=== PATIENT | female | born 1935 | race Caucasian/White ===

== ENCOUNTER 2017-04-16 11:38 | Inpatient (IN) | payer OTHER ==
[~2017-04-16 11:38] MED LIST: IOPAMIDOL (ISOVUE-370) 150 ML BTL IV ONE; LIDOCAINE 1% 300 MG/30 ML SDV ONE
[2017-04-16] MEDS ORDERED: EPINEPHrine 1 MG/10 ML SYR IVP ONE ×6 (11:39→14:00)
[2017-04-16] MEDS ORDERED: SODIUM BICARBONATE 50 MEQ/50 ML SYR IVP ONE ×2 (11:40→12:46)
[2017-04-16] MEDS ORDERED: D50W 25 GM/50 ML SYR IVP ONE (11:45)
--- NOTE | 2017-04-16 12:00 | CPEKG ---
Heart Rate: 100 RR Interval: 600 P-R Interval: Invalid QRSD Interval: 188 QT Interval: 436 QTC Interval: 563 P [place]: 0 QRS [place]: 98 T Wave [place]: -36 EKG Severity - ABNORMAL ECG - EKG Impression: ACCELERATED JUNCTIONAL RHYTHM EKG Impression: FIRST DEGREE AV BLOCK EKG Impression: RBBB AND LPFB Electronically Signed By: Todd Ramirez 16-Apr-2017 14:21:09
--- NOTE | 2017-04-16 12:02 | EDPHY ---
H & P Time Seen by Provider: 04/16/17 11:38 HPI/ROS: CHIEF COMPLAINT: Cardiac arrest HISTORY OF PRESENT ILLNESS: History from EMS; Witnessed arrest at home, possibly in the car, with bystander CPR for 5 min. She fell forward and hit her head. On EMS arrival 1st rhythm was asystole. Patient received 6 mg of epinephrine EN route with transient ROSC, and on arrival CPR is in progress with pre-hospital airway in place. Fell forward with facial trauma. The review of systems and further history unobtainable as the patient is nonverbal on arrival. did not arrive until later. PAST MEDICAL HISTORY: Unavailable on arrival as the patient is nonverbal Social history: , arrives after her. General Appearance: Unresponsive Eyes: Pupils 3 mm ENT, Mouth: Pre-hospital airway in the mouth Respiratory: No spontaneous respirations being bagged Cardiovascular: No heart sounds Gastrointestinal: Abdomen distended Neurological: Unresponsive Skin: Bruising around the right forehead and the right eye Musculoskeletal: In a C-collar, no extremity deformities noted. Remainder of physical exam is deferred because of the critical nature of the patient Emergency Department course/MDM: CPR in progress on arrival. Patient's pre-hospital airway was removed by myself and replaced with an endotracheal tube, see procedure note for details. Gastric tube placed, pressure control instead of volume control ventilation initiated for high peak airway pressures. Dr. Hinds in the ER on arrival as she is a cardiac alert by EMS. Patient had i-STAT performed which revealed glucose 166, creatinine 2.1, potassium 5.6. Additional medications given including IV epinephrine and bicarbonate. She also got IV dextrose prior to her glucose resulting. Bedside echocardiogram interpreted by Dr. Hinds shows normal LV function but very dilated right ventricle. At this point decision made to proceed to CT to evaluate for pulmonary embolism as well as for head trauma. Discussed with by Guzman and myself, and including potential need for dialysis with IV contrast given her kidney function, and consented. Patient had return of spontaneous circulation in the resuscitation room with palpable pulses and detectable blood pressure. Patient had recurrent PEA cardiac arrest in CT scanner but responded to CPR and epinephrine. Removed from backboard. Dr. Chu to admit the patient; she is present in the CT scanner Per Dr. Farrar at 12:20 p.m. there does not appear to be a large or saddle pulmonary embolism, no intracranial hemorrhage. CT scan reviewed by him on the monitor. No cspine fracture. Dr. Ayala aware because of the patient's trauma from a fall, will consult as the patient is still in a cervical spine collar. 1230: Primary care records obtained by nurse outreach case manager reviewed at this time. Negative nuclear stress test 10/17/2016. Medical problems include hypertension hypoxemia and emphysema. Also diabetes and multiple sclerosis. Discussed with the in detail including the the life-threatening nature of her illness. Directly from CT to cardiac laboratory scientist per Dr. Hinds. kept informed by myself, Dr. Chu, Dr. Hinds. Medical Claims Representative present. Constitutional: Initial Vital Signs Heart Rate 42 L 04/16/17 11:45 Blood Pressure 130/90 H 04/16/17 11:45 O2 Sat (%) 88 L 04/16/17 11:45 O2 Delivery Mode Ventilator Allergies/Adverse Reactions: Unable to Assess Allergy (Unverified 04/16/17 12:46) Medical Decision Making - Diagnostics EKG Interpretation: 12-lead EKG interpreted by me; official reading is in trace master. My interpretation is junctional rhythm with right bundle branch block and wide complex. Imaging Results: Chest Xray shows ETT and no pneumothorax, 1 view, after intubation. Procedures: Orotracheal intubation. Indication for the procedure was cardiac and respiratory arrest . The patient was preoxygenated with 100% oxygen by EMS airway. Consent is implied as the patient is nonverbal. The pre-hospital airway was removed. The patient was orally endotracheally intubated under direct visualization with a 7.5 ETT seen to pass the TVC. Tracheal intubation was confirmed with misting on the tube; breath sounds were auscultated equally bilaterally; appropriate color change with [place] CO2 detector, capnography waveform is appropriate, oxygen saturation after procedure is 90%. Chest X-ray shows ETT in good position, at the joseph. The procedure was performed by myself. Critical Care Time: Critical care time spent by me, Dr. Ramirez, exclusively with the care of this patient was 35 minutes, exclusive of PA or BRAIN PICKER time and exclusive of separate procedures including CPR. The organ system at risk was cardiovascular and I ordered ALS medications including epinephrine bicarbonate and glucose, multiple diagnostics, interaction with Cardiology and hospitalist, ventilator management ; to stabilize the patient and try to prevent worsening of the patient's condition. - Data Points Laboratory Results: Laboratory Results 04/16/17 11:45 04/16/17 11:45 Medications Given: Epinephrine HCl 8 mg/ Dextrose 250 mls @ 0 mls/hr IV CONT PHI; Per Protocol PRN Reason: Protocol Stop: 10/13/17 13:59 Last Admin: 04/17/17 06:31 Dose: 250 mls Sodium Chloride (Ns) 1,000 mls @ 100 mls/hr IV CONT PHI Stop: 10/13/17 14:36 Last Admin: 04/16/17 14:00 Dose: 1,000 mls Fentanyl/Sodium Chloride (Fentanyl 10 Mcg/Ml (Premix)) 100 mls @ 0 mls/hr IV CONT PHI; Per Protocol PRN Reason: Protocol Stop: 04/26/17 14:36 Last Admin: 04/17/17 07:10 Dose: 100 mls Propofol (Diprivan 10 Mg/Ml (Premix)) 100 mls @ 0 mls/hr IV CONT PHI; Per Protocol PRN Reason: Protocol Stop: 10/13/17 14:36 Last Admin: 04/17/17 06:34 Dose: 100 mls Norepinephrine/Sodium Chloride (Norepinephrine 8 Mcg/Ml (Premix)) 500 mls @ 0 mls/hr IV CONT PRN; Protocol; Per Protocol PRN Reason: MAP less than 90 mmHg Stop: 10/13/17 14:36 Last Admin: 04/17/17 04:59 Dose: 500 mls Dextrose (D5w) 1,000 mls @ 25 mls/hr IV CONT PHI Stop: 10/13/17 16:02 Last Admin: 04/16/17 16:30 Dose: 1,000 mls Insulin Human Regular 100 unit (/ Sodium Chloride) 101 mls @ 0 mls/hr IV AD PHI ; As Directed PRN Reason: Protocol Stop: 10/13/17 16:02 Last Admin: 04/17/17 04:46 Dose: 101 mls Discontinued Medications Dextrose (Dextrose 50% Syringe) 25 gm IVP ONCE ONE Stop: 04/16/17 11:46 Last Admin: 04/16/17 11:45 Dose: 25 gm Epinephrine HCl (Epinephrine) 1 mg IVP ONCE ONE Stop: 04/16/17 11:40 Last Admin: 04/16/17 11:39 Dose: 1 mg Epinephrine HCl (Epinephrine) 1 mg IVP ONCE ONE Stop: 04/16/17 11:43 Last Admin: 04/16/17 11:42 Dose: 1 mg Epinephrine HCl (Epinephrine) 1 mg IVP ONCE ONE Stop: 04/16/17 11:46 Last Admin: 04/16/17 11:45 Dose: 1 mg Epinephrine HCl (Epinephrine) 1 mg IVP ONCE ONE Stop: 04/16/17 12:05 Last Admin: 04/16/17 12:04 Dose: 1 mg Fentanyl (Sublimaze) 50 mcg IVP ONCE ONE Stop: 04/16/17 14:38 Last Admin: 04/16/17 18:04 Dose: Not Given Epinephrine HCl 1 mg/ Dextrose 251 mls @ 0 mls/hr IV CONT PHI; Per Protocol PRN Reason: Protocol Stop: 10/13/17 12:59 Last Admin: 04/16/17 12:05 Dose: 251 mls Sodium Chloride (Ns) 1,000 mls @ 0 mls/hr IV ONCE ONE PRN Reason: Wide Open Stop: 04/16/17 13:27 Last Admin: 04/16/17 11:40 Dose: 1,000 mls Sodium Chloride (Ns) 1,000 mls @ 0 mls/hr IV ONCE ONE PRN Reason: Wide Open Stop: 04/16/17 13:27 Last Admin: 04/16/17 12:05 Dose: 1,000 mls Sodium Chloride (Ns) 1,000 mls @ 0 mls/hr IV ONCE ONE PRN Reason: Wide Open Stop: 04/16/17 14:38 Last Admin: 04/16/17 18:08 Dose: Not Given Sodium Chloride (Ns) 500 mls @ 0 mls/hr IV ONCE ONE PRN Reason: Wide Open Stop: 04/16/17 18:47 Last Admin: 04/16/17 21:23 Dose: Not Given Magnesium Sulfate/Dextrose (Magnesium Sulf 1 Gm (Premix)) 100 mls @ 100 mls/hr IV ONCE ONE Stop: 04/17/17 04:24 Last Admin: 04/17/17 03:45 Dose: 100 mls Insulin Human Lispro (Humalog Lispro) 0 unit SC Q6H PHI PRN Reason: Protocol Stop: 10/13/17 16:29 Last Admin: 04/16/17 18:09 Dose: Not Given Lidocaine HCl (Lidocaine Hcl 1%) 0 mg SC ONCE ONE Stop: 04/16/17 16:31 Last Admin: 04/16/17 18:04 Dose: Not Given Miscellaneous Information (Message To [facility]) 1 ea MISC ONCE ONE Stop: 04/16/17 14:38 Last Admin: 04/16/17 16:30 Dose: 1 ea Sodium Bicarbonate (Sodium Bicarbonate) 50 meq IVP ONCE ONE Stop: 04/16/17 11:41 Last Admin: 04/16/17 11:40 Dose: 50 meq Sodium Bicarbonate (Sodium Bicarbonate) 50 meq IVP ONCE ONE Stop: 04/16/17 12:47 Last Admin: 04/16/17 11:50 Dose: 50 meq Sodium Bicarbonate (Sodium Bicarbonate) 50 meq IV ONCE ONE Stop: 04/16/17 20:46 Last Admin: 04/16/17 20:45 Dose: 50 meq Departure - Departure Disposition: To OP Cath/Surgery Clinical Impression: Cardiac arrest Condition: Critical
[2017-04-16 12:06] LABS: PLATELET COUNT 79 10^3/uL (150-400)
[2017-04-16 12:28] LABS: INR 2.86 (0.83-1.16); PROTIME(PATIENT) 29.9 SEC (12.0-15.0)
[2017-04-16] MEDS ORDERED: EPINEPHrine 1 MG in NS 250 ML IV SCH ×2 (12:30→13:00)
[2017-04-16] MEDS ORDERED: PHENYLEPHRINE HCL 100 MCG/ML SYR ONE (12:32)
[2017-04-16] MEDS ORDERED: HEPARIN 10,000 UNIT/10 ML MDV ONE (12:32)
[2017-04-16] MEDS ORDERED: SODIUM BICARBONATE 50 MEQ/50 ML SYR ONE ×4 (12:33→14:00)
[2017-04-16] MEDS ORDERED: NS 1,000 ML IV ONE ×3 (13:26→14:37)
[2017-04-16] MEDS ORDERED: IOPAMIDOL (ISOVUE-370) 150 ML BTL IV ONE (13:27)
[2017-04-16] MEDS ORDERED: LIDOCAINE 1% 300 MG/30 ML SDV ONE ×2 (13:27→15:59)
[2017-04-16] MEDS ORDERED: fentanYL/NACL/100 ML BAG IV ONE (14:00)
[2017-04-16] MEDS ORDERED: CALCIUM CHLORIDE 1 GM/10 ML INJ ONE ×2 (14:00)
[2017-04-16] MEDS: fentaNYL/NACL 100 ML IV SCH (14:00)
[2017-04-16] MEDS ORDERED: PROPOFOL/EMULSION 1,000 MG/100 ML BOTTLE IV ONE (14:00)
[2017-04-16] MEDS ORDERED: EPINEPHrine 4 MG in D5W 1,000 ML IV SCH (14:00)
[2017-04-16] MEDS ORDERED: NOREPINEPHRINE/NS 4 MG/500 ML BAG IV ONE (14:06)
[2017-04-16] MEDS ORDERED: MIDAZOLAM HCL 50 MG in D5W 50 ML IV PRN (14:37)
[2017-04-16] MEDS ORDERED: NARCOTIC DRIP BAG-TOTAL ALL TYPES IV PRN (14:37)
[2017-04-16] MEDS ORDERED: VECURONIUM BROMIDE 50 MG in D5W 50 ML IV SCH (14:37)
[2017-04-16] MEDS ORDERED: NS 1,000 ML IV SCH (14:37)
[2017-04-16] MEDS ORDERED: PROTOCOL POTASSIUM 1 DOSE MISC PRN ×2 (14:37→16:32)
[2017-04-16] MEDS ORDERED: fentaNYL 100 MCG/2 ML INJ IVP ONE (14:37)
[2017-04-16] MEDS ORDERED: PROTOCOL MAGNESIUM 1 DOSE IV PRN ×2 (14:37→16:32)
[2017-04-16] MEDS ORDERED: USE *INSINTENS FOR HYPOGLYCEMIA ORDERS MISC ONE (14:37)
[2017-04-16] MEDS ORDERED: NS 250 ML IV PRN (14:37)
[2017-04-16] MEDS ORDERED: niCARdipine/NACL 200 ML IV PRN (14:37)
[2017-04-16] MEDS ORDERED: MIDAZOLAM 2 MG/2 ML VIAL IVP PRN (14:37)
--- NOTE | 2017-04-16 14:38 | CPEKG ---
Heart Rate: 71 RR Interval: 845 QRSD Interval: 138 QT Interval: 472 QTC Interval: 513 QRS [place]: 96 T Wave [place]: -28 EKG Severity - ABNORMAL ECG - EKG Impression: ATRIAL FIBRILLATION EKG Impression: RBBB AND LPFB Electronically Signed By: Pito Amin 16-Apr-2017 14:43:28
[2017-04-16 15:33] LABS: PLATELET COUNT 86 10^3/uL (150-400)
--- NOTE | 2017-04-16 15:33 | GCON ---
[f rep st] CONSULTATION CRITICAL CARE NOTE DATE OF CONSULTATION: 04/16/2017 SUMMARY OF PRESENTATION AND COURSE: The patient is an 81-year-old female with risk factors including age, hypertension, and diabetes mellitus, who was admitted to the hospital as a cardiac alert on 06/2017. The patient was in her usual state of health until 1-2 days prior to admission, when she wa s noted to be more short of breath, per report. On the day of admission, when patient woke up, she w as somewhat confused and disoriented, per her . The patient and her went to go to a h air appointment, and after the patient climbed into the car, she was noted to be unresponsive by her . Her helped her out of the car. In the process, she hit her head and ended up on th ground CPR was initiated, but when she remained unresponsive, her called EMS, who presented on the scene for further evaluation. The initial rhythm was asystole. Patient was treated with CPR and epinephrine and was brought to [facility] emergency department for further manag ement. On arrival in the emergency department, patient remained in asystole with ongoing CPR. She w as given multiple rounds of epinephrine, as well as a dose of glucose and bicarbonate, with the devel opment of pulseless electrical activity, followed by pulsed electrical activity. Her initial workup included a potassium of 5.6, a glucose of 166, a pH of 7.16, and an echocardiogram. The echocardiogr am demonstrated preserved left ventricular systolic function with marked right ventricular enlargemen t and hypokinesis. Is was felt that the patient was likely suffering from a pulmonary embolism. She was taken to the CT scanner for further evaluation. On arrival in the CT scanner, patient once agai n developed pulseless electrical activity and was treated with CPR as well as epinephrine. The CT sc an demonstrated no evidence of intracranial hemorrhage. There was no evidence of pulmonary embolism. It was decided to take the patient to the cardiac catheterization laboratory to look for potential obstructive coronary artery disease that would contribute to her event. Coronary angiography demonst rated mild nonobstructive coronary artery disease. Patient was transferred back to the ICU for furth er management. It is felt that the patient's pulseless electrical activity was likely secondary to h ypoxemia; however, acidosis is difficult to exclude, as she was quite acidotic on arrival. However, this is felt to be secondary to ongoing resuscitative efforts. /[id number]/MODL
[2017-04-16] MEDS ORDERED: D5W 1,000 ML IV SCH (16:03)
[2017-04-16] MEDS ORDERED: D50W 25 GM/50 ML SYR IVP PRN ×2 (16:03→16:28)
[2017-04-16 16:14] LABS: INR 3.57 (0.83-1.16); PROTIME(PATIENT) 35.4 SEC (12.0-15.0)
[2017-04-16] MEDS ORDERED: MIDAZOLAM HCL 50 MG in NS 50 ML IV SCH (16:15)
[2017-04-16] MEDS ORDERED: ACETAMINOPHEN 650 MG SUPP PR PRN (16:20)
[2017-04-16] MEDS ORDERED: ONDANSETRON 4 MG/2 ML VIAL IVP PRN (16:20)
[2017-04-16] MEDS: INSULIN REGULAR HUMAN 100 UNIT in NS 100 ML IV SCH (16:30)
[2017-04-16] MEDS ORDERED: INSULIN LISPRO 100 UNIT/ML SC SCH (16:30)
[2017-04-16] MEDS ORDERED: LIDOCAINE 1% 300 MG/30 ML SDV SC ONE (16:30)
--- NOTE | 2017-04-16 17:34 | CPIP ---
[f rep st] INVASIVE CARDIAC PROCEDURE DATE OF PROCEDURE: 04/16/2017 PROCEDURES: 1. Coronary angiography. 2. Placement of HACA catheter. INDICATION: Pulseless electrical activity with return of perfusing rhythm. ACCESS: The patient was prepped and draped in sterile fashion. 1% lidocaine was used to anesthetize the right inguinal region. A 6-Pakistani introducer sheath was placed selectively in the right common fe moral artery via modified Seldinger technique. A 5-Pakistani introducer sheath was placed selectively in the right common femoral vein via modified Seldinger technique. CORONARY ANGIOGRAPHY: A 6-Pakistani JL4 was advanced to the left main coronary artery and images obtain ed. The left main coronary artery bifurcated into an LAD and circumflex coronary arteries. The left m ain coronary artery appeared normal. The left anterior descending coronary artery had mild diffuse di sease throughout. In the mid vessel, there was a segmental 30% stenosis present and in the distal ves andrey there was a segmental 30% stenosis present as well. The circumflex coronary artery is a moderate- sized vessel. The circumflex coronary artery gave rise to 3 OM branches. The circumflex coronary yassine ry appeared normal. A 6-Pakistani JR4 was advanced to the right coronary artery and images obtained. The right coronary artery was dominant. The right coronary artery had a proximal long segmental 30% sten osis present. LEFT VENTRICULOGRAPHY: Left ventriculography was not performed in an effort to spare contrast. This information will be gleaned from an echocardiogram. HACA CATHETER PLACEMENT: The 5-Pakistani introducer sheath placed in the right common femoral vein was later exchanged for a HACA catheter which was advanced and sewn in. COMPLICATIONS: None. CONCLUSIONS: 1. Mild coronary artery disease without flow limitation. 2. Status post successful placement of a HACA catheter. /[id number]/MODL
[2017-04-16] MEDS: NOREPINEPHRINE 4MG/NS 500 ML IV PRN (18:01)
--- NOTE | 2017-04-16 18:34 | GHP ---
[f rep st] HISTORY AND PHYSICAL DATE OF ADMISSION: 04/16/2017 CHIEF COMPLAINT: Cardiac arrest. HISTORY OF PRESENT ILLNESS: The patient is an 81-year-old female with a history of hypertension, emphysema, chronic hypoxemia, type 2 diabetes and pulmonary hypertension who presents to the emergency department in cardiac arrest. The patient lives at [place] in [facility]. She reportedly woke up this morning with some confusion. Her was assisting her in the car today to drive to a hair appointment. After she got into the car, she became suddenly unresponsive. As he assisted her out of the car she hit her head. It sounds as though she was already unconscious. EMS was called. CPR was initiated in the field. Her initial rhythm was reportedly asystole. She was given epinephrine. Upon arrival to the emergency department she had ongoing CPR with persistent asystole. She went on to receive multiple rounds of epinephrine in addition to sodium bicarb. Her rhythm then transitioned to PEA. After a final dose of epinephrine, she had return of spontaneous circulation and an epinephrine drip was initiated. A stat head CT was negative for intracranial bleed. CT pulmonary angiogram was negative for a pulmonary embolism, but did show bilateral pleural effusions, much larger on the left. In addition, she had multiple rib fractures on the left and a small right pneumothorax with displaced ribs on the right. A bedside echo in the emergency department revealed a severely dilated right ventricle. In addition, she was noted to have a small pericardial effusion. She was taken for an angiogram, which showed clear coronary arteries. She was then admitted to the intensive care unit for further management where HACA protocol was initiated. PAST MEDICAL HISTORY: 1. Chronic emphysema. 2. Chronic hypoxemic respiratory failure on home oxygen 2-3 L/minute. 3. Hypertension. 4. Pulmonary hypertension. She had a right ventricular systolic pressure of 74 on September 2016 echo with severe pulmonary hypertension. 5. Type 2 diabetes mellitus. 6. Hypothyroidism. 7. History of possible transient ischemic attack. 8. Possible history of mild multiple sclerosis per old records. 9. History of nephrolithiasis. 10. Peripheral neuropathy. 11. Degenerative disk disease. PAST SURGICAL HISTORY: 1. Foot surgery May 03, 2000. 2. Hysterectomy 1997. 3. Retropubic urethropexy 1993. 4. Urethral needle suspension 1992. 5. Cholecystectomy, appendectomy in 1959. MEDICATIONS: Please see [facility] for completed outpatient medication list. ALLERGIES: Morphine, codeine, and oxaprozin. FAMILY HISTORY: Reviewed and noncontributory. SOCIAL HISTORY: The patient is . Her is at the bedside. They live at [facility] at [facility]. She has a 40+ pack-year tobacco history and, per her , there is occasional alcohol use. REVIEW OF SYSTEMS: Unobtainable as the patient is intubated and sedated; however, discussion with her reveals the patient has chronic shortness of breath; however, she had not previously complained of chest pain prior to becoming unresponsive. She was confused and disoriented this morning. OBJECTIVE: VITAL SIGNS: Current vital signs: Temperature is 30.7, blood pressure 94/61, heart rate 67, respiratory rate 16. She is 91% on the ventilator, 80% FiO2, in atrial fibrillation. GENERAL: The patient is ventilated and sedated and unresponsive. HEENT: There is a large right frontal scalp hematoma. Pupils are 3-4 mm and reactive. NECK: Supple and difficult to assess for JVD. CHEST: Her chest wall is markedly edematous with ecchymosis across her sternum and tense tissue. HEART: Sounds are distant. She has an irregularly irregular rhythm without murmur or pericardial friction rub detected. Again, exam is difficult with her marked subcutaneous air. LUNGS : Diminished at the bases with crackles. ABDOMEN: Protuberant, tense with marked distention and likely subcutaneous air or fluid. EXTREMITIES: Reveal 1 + peripheral edema and are cool to touch though the patient is currently hypothermic on HACA protocol. NEUROLOGIC: The patient is ventilated and sedated. Does not move her extremities. LABORATORY DATA: [place] [address], hemoglobin 12.9, hematocrit 42, with a platelet count of 79. D-dimer of 14.2. PT 29.9, INR 2.86. Blood gas showed a pH of 7.16, pCO2 of 55, PO2 49. Chem panel initially showed a sodium of 144, potassium 6.1, repeat is 4.7, chloride 98, bicarb 28, BUN 34, creatinine 2.0. Her blood sugars up to 250. Urine drug screen is pending. Troponin is 0.046. EKG on arrival to the emergency department shows an irregular, wide-complex tachycardia with a right bundle branch block and a heart rate of 100. Repeat EKG is more consistent with atrial fibrillation and right bundle block persists. IMAGING DATA: 1. A cervical spine CT on admission was negative for a fracture. Severe degenerative disc disease from C4 through C7 is noted. 2. Head CT was negative for intracranial hemorrhage. A large right frontal scalp hematoma is noted. No skull or facial fractures are seen. 3. CT pulmonary angiogram negative for pulmonary embolism. A small right anterobasal pneumothorax and displaced 2nd through 7th right ribs, a left 2nd through 8 rib fractures and moderate to large left and small to moderate right pleural effusions as well as mild pericardial effusion. The ET tube is noted superior to the joseph. There is a patchy nodular opacity in the left upper lobe, possibly representing atelectasis versus an underlying mass and a small amount of free fluid around her spleen. 4. Chest x-ray, upon arrival to the ICU, showed development of extensive subcutaneous emphysema bilaterally with ET tube and NG tube in good position. Mild right-sided pneumothorax is seen and consolidation, effusion suspected at the lung bases, left greater than right. 5. Echocardiogram on arrival was performed and the report is pending though per discussion with Cardiology, this showed a severely enlarged right ventricle with a normal left systolic ejection fraction. ASSESSMENT AND PLAN: The patient is an 81-year-old female with history of diabetes, hypertension, emphysema with chronic hypoxemic respiratory failure and pulmonary hypertension who presented to the emergency department in cardiac arrest. 1. Cardiac arrest. Asystole then PEA. Suspect hypoxemic event. Clean coronaries on angiogram. Review of her record reveals chronic pulmonary hypertension with suspected right heart failure and she presents with a large pleural effusion on the left. In addition, there is evidence of central lobular emphysema. S/P multiple rounds of epinephrine as well as CPR for an extended period of time. Currently on HACA protocol. Complications from her CPR include extensive subcutaneous emphysema, pericardial effusion, perisplenic fluid and multiple rib fractures as well as chest wall ecchymosis/hematoma. Her vitals are currently stable on high dose epinephrine and Levophed. She is intubated, ventilated and sedated with propofol. Will continue pressor support and wean as able. Cardiology and pulmonology teams are following. 2. Chronic hypoxemic respiratory failure secondary to COPD, severe pulmonary hypertension with severely dilated right ventricle and right heart failure along and bilateral pleural effusions. Currently ventilated, requiring pressor therapy. Should she survive this, she will likely need diuresis at some point, although that is currently not an option. CTPA negative for PE. 3. Pericardial effusion. This is likely a complication of CPR as it was not present on her initial echo. We will need to monitor her closely for clinical changes suggestive of tamponade including tachycardia, pulsus paradoxus, electrical alternans and worsening hypotension. It is difficult to re-evaluate via transthoracic echo given her subcutaneous emphysema. Cardiology is aware. Should she decompensate during the night, would consider transesophageal echo plus or minus pericardial window as indicated. 4. Chronic hypoxemia. She uses 2-3 L of oxygen at baseline in the setting of chronic obstructive pulmonary disease and pulmonary hypertension. 5. Bilateral pleural effusions. I suspect this may be chronic in the setting of presumed right heart failure. This may have contributed to her hypoxemia and arrest. She is currently intubated, ventilated and will continue supportive care. If she survives and stabilizes we could consider a thoracentesis at some point for diagnostic and therapeutic purposes. 6. Atrial fibrillation. The patient has previously been anticoagulated with Eliquis. This will be held given her elevated INR and concern for mediastinal bleeding. She is currently rate controlled. 7. Pneumothorax. Likely complication of CPR / multiple rib fractures. I discussed the case with Dr. Ayala and he will place a chest tube. Pain control with Fentanyl. 8. Acute kidney injury. This is likely prerenal given her cardiac arrest. Her creatinine is slowly trending down. 9. Type 2 diabetes mellitus. Her blood sugars are currently in the 200s. Insulin drip per HACA protocol. 10. Deep vein thrombosis prophylaxis. Pharmacologic therapy is contraindicated with her elevated INR and recent Eliquis use. She will receive no blood thinners, sequential compression devices are placed for now. CODE STATUS: I had a lengthy discussion with the patient's regarding her goals of care and code status. He wishes for her to remain full code at this time. We will continue these discussions on a daily basis. DISPOSITION: Patient admitted to inpatient status. She will require greater than 48 hours hospitalization for ongoing management of her respiratory failure and cardiac arrest. Currently on HACA protocol in the intensive care unit. TIME SPENT: A total of 75 minutes was spent providing critical care and discussing the case with subspecialty team. /[id number]/MODL MTDD
[2017-04-16] MEDS ORDERED: NS 500 ML IV ONE (18:46)
--- NOTE | 2017-04-16 19:49 | POSTOPPROG ---
Post Op Note Date of Operation: 04/16/17 Surgeon: Pito Ayala Anesthesia: Local (Specify) Pre-op Diagnosis: RT PNEUMO AND SUBCUT EMPHYSEMA Post-op Diagnosis: SAME Indication: WORSENING RESP STATUS Procedure: RT TUBE THORACOSTOMY Findings: TENSION PNEUMO AND LOTS OF AIR IN SUBCUT Inf/Abcess present in the surg proc area at time of surgery?: No Depth: Organ Space EBL: Minimal Complications: 0 Drains: Constavac
--- NOTE | 2017-04-16 19:52 | SOAPPROG ---
SOAP Progress Note Assessment/Plan: Assessment: 81 FEMALE WITH SUDDEN , RESUSCITATED IN ER AND NOW ON HAKA PROTOCOL MASSIVE SUBCUT EMPHYSEMA/ RT PNEUMO/ VERY DISTENDED ABDOMEN NOT RESPONSIVE WILL NEED CHEST TUBE WHILE ON VENT AND PEEP Plan:RT CHEST TUBE 04/16/17 19:49 Objective: Vital Signs Temp Pulse Resp BP Pulse Ox 32.3 C L 67 20 129/67 H 97 04/16/17 19:00 04/16/17 19:00 04/16/17 19:00 04/16/17 19:00 04/16/17 19:00 Laboratory Results 04/16/17 14:00 04/15/17 04/16/17 04/17/17 05:59 05:59 05:59 Intake Total 1038.4 Output Total 1610 Balance -571.6 PT 35.4 SEC (12.0-15.0) H 04/16/17 15:50 INR 3.57 (0.83-1.16) H 04/16/17 15:50 ICD10 Worksheet Patient Problems: Problems Problem Status Onset Cardiac arrest Acute
[2017-04-16] MEDS ORDERED: NA BICARBONATE 50 MEQ/50 ML VIAL IV ONE (20:45)
[2017-04-16] MEDS: PROPOFOL/EMULSION 100 ML IV SCH (22:20)
[2017-04-17] MEDS: NOREPINEPHRINE 4MG/NS 500 ML IV PRN ×6 (00:21→22:38)
[2017-04-17 02:36] LABS: PLATELET COUNT 138 10^3/uL (150-400)
[2017-04-17 02:48] LABS: INR 2.72 (0.83-1.16); PROTIME(PATIENT) 28.8 SEC (12.0-15.0)
[2017-04-17] MEDS ORDERED: MAGNESIUM SULF 1 GM/DEXTROSE 100 ML IV ONE (03:25)
[2017-04-17] MEDS: INSULIN REGULAR HUMAN 100 UNIT in NS 100 ML IV SCH (04:46)
--- NOTE | 2017-04-17 06:27 | PDMN ---
Medical Necessity Medical necessity: est los>2mn for cardiac arrest w/asystole, then PEA, r/t suspected hypoxemic event; complications of CPR include extensive subq emphysema , pericardial effusion, perisplenic fluid , multiple rib fx's/pneumonthorax requiring chest tube, and chest wall ecchymosis/hematoma; admit to ICU on HACA protocol, intubated, sedated, and ventilated; comorbid DM, HTN, emphysema, chronic resp failure on chronic O2, and pulmonary htn; per order and H&P 04/16/17
[2017-04-17] MEDS: PROPOFOL/EMULSION 100 ML IV SCH (06:34)
[2017-04-17] MEDS: fentaNYL/NACL 100 ML IV SCH (07:10)
--- NOTE | 2017-04-17 07:41 | CPIP ---
[f rep st] INVASIVE CARDIAC PROCEDURE DATE OF PROCEDURE: 04/16/2017 PROCEDURE PERFORMED: Left femoral vein central line placement for Zoll Thermogard as part of the HACA protocol. DIAGNOSIS: Cardiac arrest, status post [id number] cardiac arrest with asystole with resuscitation. INDICATION: The Thermogard on the right side is losing fluid and is not working properly; therefore, I was asked to see the patient in consultation. PROCEDURE IN DETAIL: After informed consent was obtained from the patient's who is at bedside, and the patient was thoroughly assessed, the region of the left femoral vein was cleaned, prepped, and draped in sterile fashion. Approximately 3 cc of 1% lidocaine was utilized for local anesthesia. The patient has a BIS of 16 and is cooled. 18-gauge Cook needle was used to gain access to the left femoral vein with a single anterior puncture of the vessel. The patient then underwent placement of a J-wire. The 18-gauge needle was removed. A dilator was advanced over the wire. The dilator was removed, and the Thermogard catheter was advanced over the wire in sterile condition, sutured in place with 0 silk. FINAL IMPRESSION: Successful left femoral vein central line placement as a Zoll Thermaguard catheter for use as part of the hypothermia after cardiac arrest protocol. Copy requested to: Primary Care Physician /[id number]/MODL MTDD
[2017-04-17] MEDS ORDERED: RN MUST ADD CA+ & PHOS PROTOCOL TO WORKLIST AT 36 C MISC SCH (09:00)
[2017-04-17] MEDS: MAINTAIN PARALYTIC,ANALGESIA,SEDATION UNTIL TEMP IS 36C MISC SCH (09:00)
[2017-04-17] MEDS: RN MUST REMOVE K+ & MG+ PROTOCOL FROM WORKLIST AT 36 C MISC SCH (09:00)
--- NOTE | 2017-04-17 09:19 | ECHO ---
[email or web address] [address] [address] Main: [phone] Fax: Transthoracic Echocardiogram Name: MARISEL BRAND MR#: [id number] Study Date: 04/17/2017 Study Time: 07:56 AM Date of : 1935 Age: 81 year(s) Height: ( ) Weight: ( ) BSA: Gender: Female Examination: Limited Echo Indication: Eval for pericardial fluid Image Quality: Contrast: Requested by: Sonali Chu BP: 120 mmHg/70 mmHg Heart Rate: Rhythm: Indication: Eval for pericardial fluid Procedure Staff Operations Manager: Cierra Sheridan Physician: Pito Amin Requesting Provider: Conclusions: The left ventricle cavity is small. Global hypercontractility of the left ventricle. Right Ventricle: Moderate to severely dilated right ventricle. Moderate tricuspid regurgitation is present. RVSP is 50-60mmHG.. Trivial anterior pericardial effusion. Left side pleural effusion. Technically Limited study. Data is unreliable given the clinical scenario and limitations ; other modalities of imaging should be considered if indicated . Measurements: Chambers Valvular Assessment AV/MV Valvular Assessment TV/PV Normal Normal Normal Name Value Range Name Value Range Name Value Range AV Vmax: 1.26 m/s (1 m/s-1.7 TR Vmax: 3.16 mm/s ( - ) m/s) TR PGmax: 40 mmHg ( - ) AV maxP mmHg ( - ) syst. PAP: 50 mmHg ( - ) Continued Measurements: Valvular Assessment TV/PV Name Value CVP (est.): 10 mmHg Findings: Left Ventricle: Patient: MARISEL BRAND Study Date: 04/17/2017 Page 1 of 2 07:56 AM The left ventricle cavity is small. Global hypercontractility of the left ventricle. Right Ventricle: Moderate to severely dilated right ventricle. Tricuspid Valve: Moderate tricuspid regurgitation is present. The pulmonary artery pressure is moderately increased. RVSP is 50-60mmHG.. Pericardium: Trivial anterior pericardial effusion. Left side pleural effusion. (No Signature Object) Patient: MARISEL BRAND Study Date: 04/17/2017 Page 2 of 2 07:56 AM [id number]
--- NOTE | 2017-04-17 10:16 | NEUROPROG ---
Assessment: [id number] Neurology Consult Note CC: Concern for anoxic brain injury HPI: Pt with cardiac arrest on 04/17/17 so was brought to [facility] ER and admitted on HACA to ICU. It was reported EMS found her in asystole at the scene. In the ER she received ACLS and asystole rhythm progressed to PEA and then ROSC. Head CT unremarkable. I initially saw the patient on 04/17/17 for evaluation of possible anoxic brain injury from cardiac arrest. She was still undergoing HACA protocol but had no signs of brainstem reflexes (pupils nonreactive, not breathing on vent, no movement to pain). PMHx: chronic emphysema, chronic hypoxemia, HTN, pulm HTN, DM2, hypothyroidism, TIA, possible mild MS, renal stones, peripheral neuropathy, degen disk disease PSHx: foot surgery, hysterectomy, urinary, choli, appi SHx: FHx: NC ROS: Pt cannot provide information O: Pt lying in ICU bed, intubated, w/o any response to pain/nail bed pressure to all 4 extremities, no pupillary or vestibulo-ocular reflex, not breathing on vent, not speaking or aware Labs: 04/17/17- Na 140 Rads: 04/16/17- Head CT: no acute intracranial hemorrhage or swelling, large R frontal scalp hematoma, no underlying acute skull or facial fracture (I personally visualized the images on 04/17/17) Assessment: 1. Cardiac arrest on 04/16/17 with ROSC: Cause under evaluation by cardiology, hospitalist 2. Anoxic brain injury from cardiac arrest on 04/16/17: It will require 72 hours after initial event to provide definitive neurological prognostication however when she is re-warmed tomorrow we can assess for any brainstem reflexes and if absent she will likely be considered brain . I feel her prognosis is likely very poor. I spoke with her with my concern on prognosis. Plan: - Prognosis is uncertain but I am extremely worried she had a severe anoxic brain injury and will not recover - Agree with HACA Objective: Vital Signs Temp Pulse Resp BP Pulse Ox 33.1 C L 107 H 20 121/66 H 93 04/17/17 06:00 04/17/17 09:00 04/17/17 09:00 04/17/17 09:00 04/17/17 09:00 Laboratory Results 04/17/17 01:50 04/17/17 08:25 04/16/17 04/17/17 04/18/17 05:59 05:59 05:59 Intake Total 3803.7 Output Total 1685 Balance 2118.7 PT 28.8 SEC (12.0-15.0) H 04/17/17 01:50 INR 2.72 (0.83-1.16) H 04/17/17 01:50 Allergies/Adverse Reactions: Unable to Assess Allergy (Unverified 04/16/17 12:46)
--- NOTE | 2017-04-17 11:12 | GCON ---
[f rep st] CONSULTATION PULMONARY/CRITICAL CARE CONSULTATION. DATE OF CONSULTATION: 04/17/2017 REFERRING PHYSICIAN: Duncan Hinds MD REASON FOR REFERRAL: Evaluation and management of respiratory failure after cardiac arrest, pneumoth orax, and HACA protocol. HISTORY: The patient is an 81-year-old woman with a history of hypertension, emphysema, on oxygen, p ulmonary hypertension, and type 2 diabetes who presented to the emergency department in [facility] . She lives at [facility] at [address]. She had been feeling a bit more short of breath alisha n usual over the last couple days and was a bit confused when she woke up this morning. Her helped her get to the car today for a hair appointment. She took her oxygen off between the house an d getting into the car. She was able to get in the car okay, but when her walked around to et in to drive, he noticed that she was unresponsive. He began [id number] and then called EMS an d moved her to the ground where he thinks that she hit her head. She was unconscious throughout this time. CPR was initiated in the field with an initial rhythm of asystole. She was given epinephrine . She had ongoing CPR into the emergency department and then was given epinephrine and sodium bicarb with transition of her rhythm to PEA and then spontaneous circulation. A CT scan of the head was negative. A CT pulmonary angiogram was negative for PE but showed bilatera l moderate pleural effusions as well as a small right pneumothorax and multiple rib fractures. Echoc ardiogram demonstrated a severely dilated right ventricle. She was taken for an angiogram, which lianet wed no flow-limiting disease. HACA protocol was initiated, and she was transferred to the intensive care unit. On arrival she was hypotensive and had extensive subcutaneous emphysema. Because the chest x-ray lianet wed a persistent right pneumothorax, possibly enlarging, a chest tube was placed by Dr. Ayala on the right. After this, the patient's blood pressure improved, and her airway pressures dropped from the 50s down to the low 30s. She has remained sedated and unresponsive. PAST MEDICAL HISTORY: 1. Emphysema. The patient is on oxygen at 2 L/minute, which her reports that she uses most all the time. 2. Pulmonary hypertension. The patient had an RVSP of 74 mmHg on an echocardiogram from September 2016. 3. Hypertension. 4. Type 2 diabetes. 5. Possible obstructive sleep apnea. The patient apparently had 2 recent sleep studies, but the pat ient has not been on CPAP, and the patient's is unaware of the details of the results. 6. Possible TIA. 7. History of nephrolithiasis. 8. Atrial fibrillation. MEDICATIONS: We do not have a home medication list currently. The patient has apparently been on bl ood thinners for atrial fibrillation. ALLERGIES: Unknown. SOCIAL HISTORY: The patient has an extensive history of smoking in the past. She drinks alcohol occ asionally. She is , and her has been with her since admission. REVIEW OF SYSTEMS: Unobtainable. PHYSICAL EXAMINATION: GENERAL: The patient is intubated and sedated. VITAL SIGNS: Blood pressure is 120/64 with a heart rate of 67, on epinephrine and norepinephrine drips. This has improved from a systolic blood pressure in the 70s prior to chest tube placement. Her temperature is 31.6. HEENT: She has some ecchymoses on her face. Endotracheal tube is appropriately placed. NECK: A C-collar is present. No adenopathy is felt. CHEST: The patient has decreased breath sounds bilaterally. Sh e has extensive subcutaneous emphysema. A right chest tube is present. CARDIAC: Irregularly irregu lar without murmur. ABDOMEN: Markedly distended, also with subcutaneous emphysema, as well as obesi ty. Bowel sounds are hypoactive. EXTREMITIES: No clubbing, cyanosis. She has 1+ lower extremity e maria elena. SKIN: The patient has chronic stasis changes in both lower extremities. NEURO: The patient is sedated and unresponsive. Pupils are pinpoint and nonreactive. LABORATORY: A chemistry group shows a creatinine of 1.8 with a BUN of 32, potassium is 4.7, glucose is 218, AST is 50. Her troponin is 0.046 and albumin is 2.0. INR is 3.6. White blood count is 18.0 , up from 13.1. Hemoglobin is 9.9, down from 12.9. Her platelet count is 86. She has 17% bands. A n arterial blood gas shows a pH of 7.28 with a pO2 of 49, a CO2 of 37, and a bicarbonate of 18 on IMV with a rate of 20 and a tidal volume of 400 with 80% oxygen and a PEEP of 5. This was prior to ches t tube placement. IMAGING: A chest x-ray shows extensive subcutaneous emphysema and a small right pneumothorax. A CT scan of the chest shows no pulmonary embolism. There are bilateral moderate-size pleural effusions a nd multiple rib fractures. Images were reviewed by me. An ECG shows atrial fibrillation with a rate of 71. ASSESSMENT: 1. Cardiac arrest. The patient initially had asystole, then pulseless electrical activity. There w as prolonged cardiopulmonary resuscitation with multiple rib fractures. She has no pulmonary embolis m or evidence of coronary artery disease as a cause of her arrest. I suspect this was a hypoxemic ar rest due to the patient's chronic pulmonary hypertension, chronic obstructive pulmonary disease, and hypoxemia with perhaps an acute exacerbation or decompensation. 2. Right pneumothorax with extensive subcutaneous emphysema. This has symptomatically improved with the placement of a right chest tube. 3. Pericardial effusion. The patient has a small pericardial effusion seen on echocardiogram. This may have been due to cardiopulmonary resuscitation as it was not present on her initial evaluation. 4. Bilateral pleural effusions. These are likely chronic. 5. Atrial fibrillation. The patient has chronic atrial fibrillation. 6. Possible obstructive sleep apnea. The patient had sleep studies, but I do not have the results o f these yet, and the patient has not been treated with CPAP. She has, however, been using oxygen at night. 7. Acute kidney injury. The patient has had no urine output and likely has acute kidney injury, whi ch could be on top of chronic renal insufficiency. 8. Type 2 diabetes. The patient's blood sugars are in the 200s. RECOMMENDATIONS: Recheck arterial blood gas. I will attempt to get results of her prior sleep studi es. Continue HACA protocol and pressors to maintain blood pressure. Insulin will be started to cove r her blood sugars. I will repeat a chest x-ray to make sure that her pneumothorax has resolved. He r hemoglobin will be followed to evaluate for further blood loss. 80 minutes of critical care time with multiple reassessments due to hypotension and hypoxemia requiri ng ventilator adjustments and placement of a chest tube, with subsequent reassessments and further ad justments. /[id number]/MODL
--- NOTE | 2017-04-17 11:17 | PDINTPN ---
[employer] Progress Note Assessment/Plan: Assessment: S/P OOH arrest: Asystole, with prolonged CPR. Presumably initial cause was acute on chronic hypoxemia in setting of underlying pulmonary HTN, COPD. Currently HD stable on HACA protocol, Epi, NE. HACA: At goal temperature. Respiratory failure: Improved gas exchange and airway pressures on vent since CT placement yesterday afternoon. On vent, able to wean down FIO2. PTX: S/P right CT, with no residual PTX. Likely due to CPR/Rib Fx. Has extensive SQ air. ROSIO: Cr remains elevated, up slightly. Anuric AF: Rate OK. Anemia: H/H up today. Elevated INR: Down a bit today. No signs of active bleeding Plan: Start Pepcid. No vent changes at this time. Wean down pressors as tolerated. 04/17/17 11:26 Subjective: Intubated, sedated, unresponsive Objective: Vital Signs Temp Pulse Resp BP Pulse Ox 33.1 C L 111 H 20 121/73 H 94 04/17/17 06:00 04/17/17 10:00 04/17/17 10:00 04/17/17 10:00 04/17/17 10:00 Laboratory Results 04/17/17 01:50 04/17/17 08:25 04/16/17 04/17/17 04/18/17 05:59 05:59 05:59 Intake Total 3803.7 Output Total 1685 Balance 2118.7 PT 28.8 SEC (12.0-15.0) H 04/17/17 01:50 INR 2.72 (0.83-1.16) H 04/17/17 01:50 CXR: Unchanged. No PTX. Images reviewed by me. Laboratory Tests 04/17/17 04/17/17 01:50 08:25 INR 2.72 H pCO2 39 H pO2 76 H Total CO2 23 ABG pH 7.37 ABG HCO3 22 Physical Exam - Physical Exam General Appearance: unresponsive, No alert EENT: other (ecchymoses on face) Neck: normal inspection, other (c-collar) Respiratory: chest non-tender, lungs clear Cardiac/Chest: normal peripheral pulses, regular rate, rhythm, No edema Abdomen: distended, No normal bowel sounds (hypoactive), No soft Skin: normal color, warm/dry, other (chronic changes BLE) Extremities: normal inspection Neuro/Psych: alert, normal mood/affect, oriented x 3 ICD10 Worksheet Patient Problems: Problems Problem Status Onset Cardiac arrest Acute
[2017-04-17] MEDS: FAMOTIDINE 20 MG/NACL 50 ML IV SCH (11:35)
--- NOTE | 2017-04-17 11:42 | HOSPPROG ---
Hospitalist Progress Note Assessment/Plan: Cardiac arrest - likely respiratory event. Completing HACA protocol today. Clear cors on angiogram. -wean pressors as able -neurology evaluation appreciated -assess for brainstem activity once re-warmed Acute / chronic hypoxemic respiratory failure - Ventilated / sedated. H/O COPD as well as B/L pleural effusions noted, likely chronic with right heart failure and severe pulmonary hypertension. On 2-3 L at baseline. Also suspect ARASH / OHS contributing. -follow up outpt sleep study results Pneumothorax in setting of multiple rib fractures after prolonged CPR - chest tube management per surgery Pericardial effusion - likely secondary to CPR, was not present on initial echo. Stable. No e/o tamponade. -stat echo for clinical signs of tamponade (hypotension, tachycardia, pulsus paradoxus) Type 2 DM - insulin drip while on HACA, then transition to SC insulin A fib - currently rate controlled, has been on eliquis, which is held during HACA ROSIO - Cr up to 2.2, likely pre-renal in setting of cardiac arrest vs ATN. Will send urine studies. Poor uop. Full code Dispo - cont ICU, prognosis guarded Subjective: pt ventilated, sedated, not following commands Objective: Vital Signs Temp Pulse Resp BP Pulse Ox 33.1 C L 103 H 20 123/67 H 94 04/17/17 06:00 04/17/17 11:00 04/17/17 11:00 04/17/17 11:00 04/17/17 11:00 Laboratory Results 04/17/17 01:50 04/17/17 08:25 04/16/17 04/17/17 04/18/17 05:59 05:59 05:59 Intake Total 3803.7 Output Total 1685 Balance 2118.7 PT 28.8 SEC (12.0-15.0) H 04/17/17 01:50 INR 2.72 (0.83-1.16) H 04/17/17 01:50 - Physical Exam Constitutional: chronically ill appearing Cardiovascular: irregularly irregular, other (chest wall edema / subcutaneous emphysema improved, but marked mediastinal ecchymosis) Respiratory: no respiratory distress, reduced air movement Musculoskeletal: other Psychiatric: other (sedated) ICD10 Worksheet Patient Problems: Problems Problem Status Onset Cardiac arrest Acute
--- NOTE | 2017-04-17 11:57 | SOAPPROG ---
SOAP Progress Note Assessment/Plan: Assessment: 81 FEMALE WITH SUDDEN , RESUSCITATED IN ER AND NOW ON HAKA PROTOCOL MASSIVE SUBCUT EMPHYSEMA/ RT PNEUMO/ VERY DISTENDED ABDOMEN NOT RESPONSIVE WILL NEED CHEST TUBE WHILE ON VENT AND PEEP Plan:RT CHEST TUBE 04/16/17 19:49 04/17/17 11:55 MINIMAL CHEST TUBE DRAINAGE/PATIENT IS MINIMAL AFFECT IS OFF TODAY AND POORLY RESPONSIVE/IT CT SCAN WAS NEGATIVE WILL NEED TISSUE FOR DIAGNOSIS/NO EASILY PALPABLE NODES FOR BIOPSY/QUESTIONABLE BRONCHOSCOPY VERSUS IR BIOPSIES VERSUS LAPAROSCOPIC SURGICAL BIOPSY Objective: Vital Signs Temp Pulse Resp BP Pulse Ox 33.1 C L 103 H 20 123/67 H 94 04/17/17 06:00 04/17/17 11:00 04/17/17 11:00 04/17/17 11:00 04/17/17 11:00 Laboratory Results 04/17/17 01:50 04/17/17 08:25 04/16/17 04/17/17 04/18/17 05:59 05:59 05:59 Intake Total 3803.7 Output Total 1685 Balance 2118.7 PT 28.8 SEC (12.0-15.0) H 04/17/17 01:50 INR 2.72 (0.83-1.16) H 04/17/17 01:50 ICD10 Worksheet Patient Problems: Problems Problem Status Onset Cardiac arrest Acute
--- NOTE | 2017-04-17 12:02 | SOAPPROG ---
SOAP Progress Note Assessment/Plan: Assessment: 81 FEMALE WITH SUDDEN , RESUSCITATED IN ER AND NOW ON HAKA PROTOCOL MASSIVE SUBCUT EMPHYSEMA/ RT PNEUMO/ VERY DISTENDED ABDOMEN NOT RESPONSIVE WILL NEED CHEST TUBE WHILE ON VENT AND PEEP Plan:RT CHEST TUBE 04/16/17 19:49 04/17/17 11:55 MINIMAL CHEST TUBE DRAINAGE/PATIENT IS MINIMAL AFFECT IS OFF TODAY AND POORLY RESPONSIVE/IT CT SCAN WAS NEGATIVE WILL NEED TISSUE FOR DIAGNOSIS/NO EASILY PALPABLE NODES FOR BIOPSY/QUESTIONABLE BRONCHOSCOPY VERSUS IR BIOPSIES VERSUS LAPAROSCOPIC SURGICAL BIOPSY 04/17/17 11:58 A PREVIOUS NOTE ON THE WRONG PATIENT/MINIMAL CHEST TUBE DRAINAGE AND MINIMAL AIR LEAK/SUBCU EMPHYSEMA IS MARKEDLY DECREASED/PATIENT STILL ON THE HAKA PROTOCOL PROGNOSIS GUARDED Objective: Vital Signs Temp Pulse Resp BP Pulse Ox 33.1 C L 103 H 20 123/67 H 94 04/17/17 06:00 04/17/17 11:00 04/17/17 11:00 04/17/17 11:00 04/17/17 11:00 Laboratory Results 04/17/17 01:50 04/17/17 08:25 04/16/17 04/17/17 04/18/17 05:59 05:59 05:59 Intake Total 3803.7 Output Total 1685 Balance 2118.7 PT 28.8 SEC (12.0-15.0) H 04/17/17 01:50 INR 2.72 (0.83-1.16) H 04/17/17 01:50 ICD10 Worksheet Patient Problems: Problems Problem Status Onset Cardiac arrest Acute
[2017-04-17 14:39] LABS: PLATELET COUNT 135 10^3/uL (150-400)
[2017-04-17 14:50] LABS: INR 2.58 (0.83-1.16); PROTIME(PATIENT) 27.6 SEC (12.0-15.0)
[2017-04-17] MEDS ORDERED: PROTOCOL CALCIUM 1 DOSE IV PRN (14:58)
[2017-04-17] MEDS ORDERED: PROTOCOL K PHOSPHATE 1 DOSE IV PRN (14:58)
--- NOTE | 2017-04-17 15:12 | CPEKG ---
Heart Rate: 109 RR Interval: 550 QRSD Interval: 132 QT Interval: 372 QTC Interval: 502 QRS Clayton: 79 T Wave Clayton: -78 EKG Severity - ABNORMAL ECG - EKG Impression: ATRIAL FIBRILLATION EKG Impression: RIGHT BUNDLE BRANCH BLOCK EKG Impression: diffuse nonspecific ST-T changes Electronically Signed By: Pito Amin 17-Apr-2017 16:02:48
--- NOTE | 2017-04-17 15:39 | ASMTCASEMG ---
Living Arrangements What is your living Answers: With Spouse arrangement? Who do you live with? Type Of Residence What kind of residence do Answers: House you live in? Discharge Plan Comments Coordination Status Comments Notes: Pt is a 81 y/o female admited for a cardiac arrest. Pt is currently on a vent and PEEP. Pt is having a chest tube placed. Needs are TBD at this time. SPL, spiritual care, and neurology has been ordered. CM to follow. Plan: TBD Date Signed: 04/17/2017 03:39 PM Electronically Signed By:ANA Jaime
--- NOTE | 2017-04-17 17:02 | SOAPPROG ---
SOAP Progress Note Assessment/Plan: 1. Cardiac arrest - Pt presented with asystolic cardiac arrest likely secondary to hypoxemia. Acidosis remains on differential but is likely secondary to cardiac arrest. (No PE on CT scan. No significant obstructive disease on angiogram. Initial echocardiogram with no pericardial effusion and preserved EF ). Currently on HACA protocol and is in the rewarming phase. Prognosis remains guarded given prolonged CPR. 2. Pericardial effusion - Pt developed a pericardial effusion post CPR. Suspect secondary trauma. Repeat echocardiogram with interval improvement. No evidence of tamponade. Continue to follow 3. A-fib - Pt has chronic A-fib. She is managed with a rate control and anticoagulation strategy. Currently not anticoagulation secondary to HACA protocol. 4. CAD - Pt has mild non-obstructive CAD. Medical management. --> resume medications as appropriate. 04/17/17 17:02 Subjective: Intubated and sedate New HACA cath placed overnight Objective: Vital Signs Temp Pulse Resp BP Pulse Ox 33.1 C L 114 H 20 111/61 91 L 04/17/17 06:00 04/17/17 16:38 04/17/17 16:00 04/17/17 16:38 04/17/17 16:00 Laboratory Results 04/17/17 14:00 04/17/17 14:00 04/16/17 04/17/17 04/18/17 05:59 05:59 05:59 Intake Total 3803.7 Output Total 1685 195 Balance 2118.7 -195 PT 27.6 SEC (12.0-15.0) H 04/17/17 14:00 INR 2.58 (0.83-1.16) H 04/17/17 14:00 Physical Exam - Physical Exam General Appearance: other (intubated and sedate.) Respiratory: crackles, other (crepitus) Cardiac/Chest: irregularly irregular Abdomen: other (distended) Extremities: pedal edema ICD10 Worksheet Patient Problems: Problems Problem Status Onset Cardiac arrest Acute
[2017-04-18 02:19] LABS: PLATELET COUNT 129 10^3/uL (150-400)
[2017-04-18] MEDS: NOREPINEPHRINE 4MG/NS 500 ML IV PRN ×4 (03:12→12:32)
[2017-04-18 03:36] LABS: INR 2.26 (0.83-1.16)
[2017-04-18 07:07] VITALS: RESP 18
[2017-04-18] MEDS ORDERED: MAGNESIUM SULF 1 GM/DEXTROSE 100 ML IV ONE (09:01)
[2017-04-18] MEDS: FAMOTIDINE 20 MG/NACL 50 ML IV SCH (09:27)
[2017-04-18] MEDS ORDERED: CALCIUM GLUCONATE 50 ML IV ONE (09:31)
[2017-04-18] MEDS: MAINTAIN PARALYTIC,ANALGESIA,SEDATION UNTIL TEMP IS 36C MISC SCH (09:44)
[2017-04-18] MEDS: RN MUST REMOVE K+ & MG+ PROTOCOL FROM WORKLIST AT 36 C MISC SCH (09:44)
--- NOTE | 2017-04-18 09:54 | NEUROPROG ---
Assessment: [id number] Neurology Consult Note CC: Concern for anoxic brain injury Narrative Summary: Pt with cardiac arrest on 04/17/17 so was brought to [facility] ER and admitted on HACA to ICU. It was reported EMS found her in asystole at the scene. In the ER she received ACLS and asystole rhythm progressed to PEA and then ROSC. Head CT unremarkable. I initially saw the patient on 04/17/17 for evaluation of possible anoxic brain injury from cardiac arrest. She was still undergoing HACA protocol but had no signs of brainstem reflexes (pupils nonreactive, not breathing on vent, no movement to pain). HPI: Inpt f/u 04/17/17. Cardiology felt likely her cardiac arrest was from hypoxemia. Pt completed HACA protocol yesterday and is now rewarmed. Still no evidence of brainstem reflexes (pupillary response, withdrawal to pain, evidence of breathing on intubation vent). PMHx: chronic emphysema, chronic hypoxemia, HTN, pulm HTN, DM2, hypothyroidism, TIA, possible mild MS, renal stones, peripheral neuropathy, degen disk disease PSHx: foot surgery, hysterectomy, urinary, choli, appi SHx: FHx: NC ROS: Pt cannot provide information O: Pt lying in ICU bed, intubated, w/o any response to pain/nail bed pressure to all 4 extremities, no pupillary or vestibulo-ocular reflex, not breathing on vent, not speaking or aware Labs: 04/17/17- Na 140 Rads: 04/16/17- Head CT: no acute intracranial hemorrhage or swelling, large R frontal scalp hematoma, no underlying acute skull or facial fracture (I personally visualized the images on 04/17/17) Assessment: 1. Cardiac arrest on 04/16/17 with ROSC: Likely from hypoxemia per cardiology note 2. Anoxic brain injury from cardiac arrest on 04/16/17: It will require 72 hours after initial event to provide definitive neurological prognostication however brainstem reflexes are absent at this point. I feel her prognosis is likely very poor. I will have the nurse inquire about setting up a family meeting tomorrow am to consider withdrawing care if no recovery evident at that time. Plan: - Prognosis is uncertain but I am extremely worried she had a severe anoxic brain injury and will not recover - I will have the nurse inquire about setting up a family meeting tomorrow am to consider withdrawing care if no recovery evident at that time 35 min spent with patient and nurse coordinating care and discussing prognosis as well as discussing need for family meeting. Objective: Vital Signs Temp Pulse Resp BP Pulse Ox 36.4 C 115 H 18 104/75 96 04/18/17 09:00 04/18/17 09:00 04/18/17 09:00 04/18/17 09:00 04/18/17 09:00 Laboratory Results 04/18/17 02:10 04/18/17 08:05 04/17/17 04/18/17 04/19/17 05:59 05:59 05:59 Intake Total 3803.7 4713.7 Output Total 1685 670 Balance 2118.7 4043.7 PT 25.0 SEC (12.0-15.0) H 04/18/17 02:10 INR 2.26 (0.83-1.16) H 04/18/17 02:10 Allergies/Adverse Reactions: codeine Allergy (Verified 04/17/17 11:28) morphine Allergy (Verified 04/17/17 11:28) oxaprozin Allergy (Verified 04/17/17 11:28)
[2017-04-18 11:06] VITALS: TEMP 97.5
--- NOTE | 2017-04-18 12:05 | HOSPPROG ---
Hospitalist Progress Note Assessment/Plan: Cardiac arrest - likely respiratory event. Clear cors on angiogram. Completed HACA yesterday, per neurology and on my exam, no e/o brainstem function -discussed with family no meaningful [employer] activity, plan to withdraw care today or tomorrow Acute / chronic hypoxemic respiratory failure - Ventilated / sedated. Pneumothorax in setting of multiple rib fractures after prolonged CPR - chest tube management per surgery Pericardial effusion - likely secondary to CPR, was not present on initial echo. Stable. No e/o tamponade. Type 2 DM A fib ROSIO - likely ATN, poor uop. Code status- discussed with family that CPR would be futile, they agree and will change to DNR Dispo - cont ICU, plan to withdraw care once family has convened, today or tomorrow Objective: Vital Signs Temp Pulse Resp BP Pulse Ox 36.4 C 115 H 18 97/60 L 97 04/18/17 11:00 04/18/17 11:00 04/18/17 11:00 04/18/17 11:00 04/18/17 11:00 Laboratory Results 04/18/17 02:10 04/18/17 08:05 04/17/17 04/18/17 04/19/17 05:59 05:59 05:59 Intake Total 3803.7 4713.7 Output Total 1685 670 Balance 2118.7 4043.7 PT 25.0 SEC (12.0-15.0) H 04/18/17 02:10 INR 2.26 (0.83-1.16) H 04/18/17 02:10 ICD10 Worksheet Patient Problems: Problems Problem Status Onset Cardiac arrest Acute
--- NOTE | 2017-04-18 12:37 | ASMTCMCOM ---
CM Note CM Note Notes: Patient has no brainstem function per neurology and Dr. Chu's exam. Family plans to withdraw care today or tomorrow. CM available should social work or case management needs arise. Date Signed: 04/18/2017 12:36 PM Electronically Signed By:Emily Ogden LCSW
--- NOTE | 2017-04-18 13:43 | PDINTPN ---
Traveling Sales Representative Progress Note Assessment/Plan: Assessment: S/P OOH arrest: Asystole, with prolonged CPR. Presumably initial cause was acute on chronic hypoxemia in setting of underlying pulmonary HTN, COPD. Currently HD stable on high-dose Epi. Completed HACA protocol and now warmed. No brainstem reflexes Respiratory failure: Adequate gas exchange and airway pressures on vent since CT placement yesterday afternoon. On vent, able to wean down FIO2. PTX: S/P right CT, with no residual PTX. Likely due to CPR/Rib Fx. Has extensive SQ air. ROSIO: Cr remains elevated, up slightly. Anuric AF: Rate OK. Anemia: H/H up today. Elevated INR: Down a bit today. No signs of active bleeding Plan: Discussed absence of brain function with family. It's my belief that she has no meaningful chance of returning to the desired level of function that the had expressed he would want in order to continue support. They are prepared to withdraw support today. 04/18/17 13:39 Subjective: Unresponsive Objective: Vital Signs Temp Pulse Resp BP Pulse Ox 36.4 C 110 H 18 96/55 L 97 04/18/17 12:00 04/18/17 13:00 04/18/17 13:00 04/18/17 13:00 04/18/17 12:00 Laboratory Results 04/18/17 02:10 04/18/17 08:05 04/17/17 04/18/17 04/19/17 05:59 05:59 05:59 Intake Total 3803.7 4713.7 Output Total 1685 670 Balance 2118.7 4043.7 PT 25.0 SEC (12.0-15.0) H 04/18/17 02:10 INR 2.26 (0.83-1.16) H 04/18/17 02:10 Physical Exam - Physical Exam General Appearance: unresponsive, No alert EENT: No normal ENT inspection (ecchymoses face) Neck: normal inspection Respiratory: lungs clear, normal breath sounds Cardiac/Chest: regular rate, rhythm, edema (1+) Abdomen: normal bowel sounds, non-tender, soft Skin: normal color, warm/dry Extremities: normal inspection Neuro/Psych: No alert (no cough, gag. Pupils fixed, small) ICD10 Worksheet Patient Problems: Problems Problem Status Onset Cardiac arrest Acute
[2017-04-18] MEDS ORDERED: LORazepam 2 MG/ML INJ IVP PRN (14:09)
[2017-04-18 14:18] VITALS: BP 82/43; PULSE 108; O2SAT 86
--- NOTE | 2017-04-18 20:29 | GDS ---
[f rep st] DISCHARGE SUMMARY SUMMARY DATE AND TIME OF : April 18, 2017, at 1423. HOSPITAL COURSE: The patient is an 81-year-old female with a history of chronic hypoxemic respirator y failure, emphysema, pulmonary hypertension, and diabetes, who became unresponsive at elevation whil e off her oxygen with her . She was breathless and pulseless. EMS was called. CPR was initi ated in the field. She received multiple rounds of epinephrine and prolonged CPR for likely over 90 minutes. Upon arrival to the emergency department, she was found to be in asystole followed by PEA. After several doses of epinephrine, she did have return of spontaneous circulation, but remained unr esponsive. An echocardiogram in the emergency department showed severely dilated right ventricle. C T pulmonary angiogram is negative for pulmonary embolism. She was taken for angiogram and had clear coronary arteries. It is suspected she had a primary respiratory arrest leading to her cardiac arres t, likely in the setting of hypoxemia while off her oxygen at elevation in the setting of underlying severe pulmonary hypertension and right heart failure. Her postresuscitation course was complicated by multiple rib fractures and a tension pneumothorax requiring a chest tube and pericardial effusion without evidence of tamponade. She was placed on HACA protocol, and after rewarming, there was no ev idence of brainstem reflexes, and she was essentially declared brain . The family gathered and s aid their good-byes. Pulmonology, Cardiology, and Hospital Medicine all agreed the patient had no me aningful recovery. The family wished to withdraw support. She was extubated at 1420 on April 18, and at 1423. Her family wished to not be present at the time care was withdrawn. /[id number]/MODL
--- NOTE | 2017-04-20 01:34 | GCON ---
[f rep st] CONSULTATION HISTORY OF PRESENT ILLNESS: The patient is an 81-year-old female, who had a sudden cardiac arrest. She has had a long resuscitation and presently on a ventilator and under going a HACA protocol. She presents with massive subcutaneous emphysema respiratory situation, and increasing pressur es on the ventilator. Her chest x-ray is difficult to interpret but does reveal a right pneumothorax . I was consulted for treatment of this situation with chest tube placement. The patient presently is nonresponsive and moving no extremities, and has undergone resuscitation for over an hour prior to admission to the hospital. PAST MEDICAL HISTORY: Obtained from the chart and from her includes emphysema and respirator y failure, hypertension, pulmonary hypertension, diabetes, hypothyroidism, kidney stones, peripheral neuropathy. She has had foot surgery, hysterectomy, a retropubic urethropexy. PAST SURGICAL HISTORY: She has had a cholecystectomy, appendectomy, urethropexy, a hysterectomy, and some bunion surgery. ALLERGIES: Morphine, codeine, oxaprozin. FAMILY HISTORY: Noncontributory. MEDICATIONS: Listed in the chart. PHYSICAL EXAMINATION: GENERAL: Reveals an unresponsive 81-year-old female on the ventilator in ICU. HEENT: Pupils are minimally reactive in her pin point. She is intubated and has subcu emphysema i n her neck and face. CHEST: Reveals a large amount of subcu emphysema making it difficult to assess her breath sounds, but they seem to be decreased on the right. She has skin markedly distended and taunt including her breast from subcu emphysema. This extends down into her abdomen as well. ABDOME N: Markedly distended and tympanitic. No obvious hernias. EXTREMITIES: Distal pulses but no motion . NEUROLOGIC: Could not be assessed. IMPRESSION: Right tension pneumothorax and tension subcutaneous emphysema. PLAN: Tube thoracostomy on the right. Risks and options have been discussed with the family who wis h to proceed despite her critical situation. /[id number]/MODL
--- NOTE | 2017-04-20 04:51 | GOP ---
[f rep st] OPERATIVE REPORT DATE OF OPERATION: 04/16/2017 SURGEON: Pito Ayala MD PREOPERATIVE DIAGNOSIS: Right tension pneumothorax and subcu emphysema. POSTOPERATIVE DIAGNOSIS: Right tension pneumothorax and subcu emphysema. PROCEDURE PERFORMED: Right tube thoracostomy. FINDINGS: The patient was found to have a tension pneumothorax and tension subcu emphysema with mass see distention of the chest wall and extending down to her abdomen. This was markedly relieved with chest tube placement. INDICATIONS: The patient has had longstanding resuscitation after cardiac arrest and has developed i ncreasing respiratory difficulties and difficulties on the ventilator. DESCRIPTION OF PROCEDURE: The patient was in the ICU on a ventilator. She was prepped and draped in the usual sterile fashion. A transverse incision was made over the 6th intercostal space in the ant erior axillary line. Dissection extended down through subcutaneous tissue. Just cutting the skin an d the subcu released a tremendous amount of air and tension off the patient's chest and chest wall. The 6th intercostal space was identified and entered in the anterior axillary line. Again, releasing a large amount of air from the chest and improving dramatically the tension in the subcutaneous emph ysema. A #24 chest tube was placed through this incision in the intercostals and positioned in the a pex of the lung, secured at the exit site with a 2-0 silk suture and connected to Pleur-evac drainage system. She tolerated the procedure quite well. There were no complications. /[id number]/MODL
== END 2017-04-18 14:23 | disposition expired | DRG 166 ==
LOC: EDBD 11:38 → F2N 13:45
PROVIDERS: ADMIT Hospitalist; ATTEND Hospitalist
PROC: 0B9K30Z Drainage of Right Lung with Drainage Device, Percutaneous Approach (ICD-10-PCS; principal; 2017-04-16)
PROC: 06HN33Z Insertion of Infusion Device into Left Femoral Vein, Percutaneous Approach (ICD-10-PCS; 2017-04-16)
PROC: B2151ZZ Fluoroscopy of Left Heart using Low Osmolar Contrast (ICD-10-PCS; 2017-04-16)
PROC: B2111ZZ Fluoroscopy of Multiple Coronary Arteries using Low Osmolar Contrast (ICD-10-PCS; 2017-04-16)
PROC: 5A1945Z Respiratory Ventilation, 24-96 Consecutive Hours (ICD-10-PCS; 2017-04-17)
PROC: 0BH17EZ Insertion of Endotracheal Airway into Trachea, Via Natural or Artificial Opening (ICD-10-PCS; 2017-04-17)
DX: R09.2 Respiratory arrest (principal); J93.0 Spontaneous tension pneumothorax; S22.43XA Multiple fractures of ribs, bilateral, initial encounter for closed fracture; J90 Pleural effusion, not elsewhere classified; T79.7XXA Traumatic subcutaneous emphysema, initial encounter; J96.10 Chronic respiratory failure, unspecified whether with hypoxia or hypercapnia; I27.20 Pulmonary hypertension, unspecified; E11.9 Type 2 diabetes mellitus without complications; I10 Essential (primary) hypertension; E03.9 Hypothyroidism, unspecified; I48.91 Unspecified atrial fibrillation; Z79.01 Long term (current) use of anticoagulants; X58.XXXA Exposure to other specified factors, initial encounter; Y92.015 Private garage of single-family (private) house as the place of occurrence of the external cause
CPT/HCPCS: 80307; 82947-QW; 96365; 96374; G0480; J0171; J0610; J1644; J1815; J2370; J2704; J3010; J3475; Q9967